=== PATIENT | female | born 1990 | race Caucasian/White ===

== ENCOUNTER 2018-07-13 18:49 | Emergency (ER) | payer SELFPAY ==
[~2018-07-13] VITALS: Ht 172.7 cm; Wt 63.5 kg
[2018-07-13 18:44] VITALS: BP 117/83
[2018-07-13 19:07] VITALS: BP 117/83
--- NOTE | 2018-07-13 20:10 | Emergency Room Report ---
History of Present Illness General Chief Complaint: Medical Clearance Source: Patient Present Illness HPI The patient is a 28-year-old female in custody accompanied by police officers for medical clearance. The patient is taking citalopram for depression which is why they're asking for medical clearance. The patient denies any symptoms including N, V, F, [place], abd pain, CP, SOB. She denies SI/HI Allergies: Coded Allergies: No Known Allergies (Unverified , 07/13/18) Patient History Past Medical History: see triage record Pertinent Family History: none Reviewed Nursing Documentation: PMH: Agreed; PSxH: Agreed Nursing Documentation-PMH Past Medical History: No Stated History Review of Systems All Other Systems: negative except mentioned in HPI Physical Exam Vital Signs Date Time Temp Pulse Resp B/P (MAP) Pulse Ox O2 Delivery O2 Flow Rate FiO2 07/13/18 18:38 98.2 94 18 117/83 99 Room Air 98.2 Sp02 EP Interpretation: reviewed, normal General Appearance: no apparent distress, alert, GCS 15, non-toxic Head: normocephalic, atraumatic Eyes: bilateral eye normal inspection, bilateral eye PERRL ENT: hearing grossly normal, normal pharynx, no angioedema, normal voice Neck: full range of motion, supple/symm/no masses Respiratory: chest non-tender, lungs clear, normal breath sounds, speaking full sentences Cardiovascular #1: regular rate, rhythm, no edema Genitourinary: normal inspection, no CVA tenderness Musculoskeletal: back normal, gait/station normal, normal range of motion, non- tender Neurologic: alert, oriented x3, responsive, motor strength/tone normal, sensory intact, speech normal Psychiatric: judgement/insight normal, memory normal, mood/affect normal, no suicidal/homicidal ideation Skin: normal color, no rash, warm/dry, well hydrated Medical Decision Making PA Attestation Dr. Garcia is my supervising physician. Patient management was discussed with my supervising physician Diagnostic Impression: Primary Impression: Medical clearance for incarceration ER Course The patient is a 28-year-old female in custody accompanied by police officers for medical clearance DDx Considered but not limited to: anxiety, depression PE: Vitals WNL. NAD. Handcuffs in place. Lungs CTA bilat RRR Pt is to receive citalopram as prescribed once in custody as workplace rehabilitation officer explained to the patient. She was informed to continue taking it as prescribed. ER precautions given. Pt is given medical clearance and has no further concerns. Last Vital Signs Date Time Temp Pulse Resp B/P (MAP) Pulse Ox O2 Delivery O2 Flow Rate FiO2 07/13/18 19:07 98.2 94 18 117/83 99 Room Air 98.2 Status: improved Disposition: D/C TO LAW ENFORCEMENT IN CUST Condition: Stable Referrals: NOT CHOSEN IPA/MD,REFERRING (PCP) Departure Forms: Long Term Clearance Additional Instructions: I discussed my findings with the patient. You have been medically cleared for incarceration. Continue medication as was prescribed to you. Seek medical attention as needed. ALIDA ZAIDI Jul 13, 2018 20:10
== END 2018-07-13 19:03 ==
LOC: EDBD 18:49 → EMR 19:00
DX: Z02.89 Encounter for other administrative examinations (principal); F32.9 Major depressive disorder, single episode, unspecified
CPT/HCPCS: 99283